=== PATIENT | male | born 1960 | race Two or more races ===

== ENCOUNTER 2021-10-20 09:19 | Observation (INO) ==
[2021-10-18 16:17] LABS: Basophils # 0.1 10*3/uL (0.0-0.2); Basophils % 1.1 % (0.0-0.8); Eosinophils # 0.1 10*3/uL (0.0-0.87); Eosinophils % 1.9 % (0.00-10.9); Hematocrit 49.5 VOL% (42.0-52.0); Hemoglobin 16.5 GM/DL (14.0-18.0); Immature Granulocytes % 0.4 %; Immature Granulocytes Absolute 0.02 #; Lymphocytes # 2.8 10*3/uL (1.4-4.0); Lymphocytes % 51.9 % (21.2-54.2); Mean Corpuscular HGB Conc 33.3 GM/DL (32-36); Mean Platelet Volume 10.1 FL (9.6-12.0); Monocytes # 0.5 10*3/uL (0.11-0.8); Monocytes % 8.6 % (1.7-12.7); Neutrophils % 36.1 % (38.7-73.9); Platelet Count 283 T/CUMM (130-400); Red Blood Count 5.44 MC/CUMM (3.8-5.5); Red Cell Distribution Width 13.6 % (9.3-17.3); White Blood Count 5.4 T/CUMM (4-12)
[2021-10-18 16:36] LABS: Albumin 3.6 G/DL (3.4-5.0); Bilirubin,Total 0.6 MG/DL (0.20-1.00); Calcium 8.7 MG/DL (8.5-10.1); Osmolality,Calculated 281.1 MOS/KG (273-304); Potassium 4.5 MMOL/L (3.5-5.1); Total Protein 6.4 G/DL (6.4-8.2)
[2021-10-18 16:41] LABS: Eosinophils 3 % (0-10); Lymphocytes 55 % (20-55)
[2021-10-18 16:42] LABS: Platelet Estimate Normal; Total Cells Counted 100
[2021-10-20] MEDS: LACTATED RINGERS 1,000 ML IV SCH ×2 (09:50→14:16)
[2021-10-20] MEDS ORDERED: DIAZEPAM 5 MG TABLET PO ONE (10:08)
[2021-10-20] MEDS ORDERED: FAMOTIDINE 20 MG TABLET PO ONE (10:08)
[2021-10-20] MEDS ORDERED: LIDOCAINE 2% 5 ML VIAL ONE (12:25)
[2021-10-20] MEDS ORDERED: propofoL 200 MG/20 ML VIAL IV ONE (12:25)
[2021-10-20] MEDS ORDERED: fentaNYL 100 MCG/2 ML VIAL ONE ×2 (12:25→13:35)
[2021-10-20] MEDS ORDERED: SEVOFLURANE 1 UNIT/15 MINUTE INH ONE ×8 (12:27→14:18)
[2021-10-20] MEDS ORDERED: ONDANSETRON 4 MG/2 ML VIAL ONE (12:41)
[2021-10-20] MEDS ORDERED: PHENYLEPHRINE 1 MG/10 ML SYRINGE IV ONE (12:53)
[2021-10-20] MEDS ORDERED: BELLADONNA/OPIUM 30 MG SUPP RECTAL ONE (13:45)
[2021-10-20] MEDS ORDERED: diphenhydrAMINE 50 MG/1 ML VIAL IV PRN (14:03)
[2021-10-20] MEDS ORDERED: LACTULOSE 20 GM/30 ML UDCUP PO PRN (14:03)
[2021-10-20] MEDS ORDERED: HYDROmorphone 1 MG/1 ML SYRINGE IV PRN (14:03)
[2021-10-20] MEDS ORDERED: ONDANSETRON 4 MG/2 ML VIAL IV PRN ×2 (14:03→14:13)
[2021-10-20] MEDS ORDERED: SIMETHICONE CHEW 125 MG TABLET PO PRN (14:03)
[2021-10-20] MEDS ORDERED: oxyCODONE/ACETAMINOPHEN 5-325 MG TABLET PO PRN (14:03)
[2021-10-20] MEDS ORDERED: PROMETHAZINE 25 MG/1 ML VIAL IM PRN (14:03)
[2021-10-20] MEDS: HYDROmorphone 1 MG/1 ML SYRINGE IV PRN ×2 (14:15→14:27)
[2021-10-20] MEDS: GENTAMICIN INJ 160 MG in SODIUM CHLORIDE 0.9% 100 ML IV SCH (15:23)
[2021-10-20] MEDS: ACETAMINOPHEN 325 MG TABLET PO SCH ×2 (15:33→20:21)
[2021-10-20] MEDS: SODIUM CHLORIDE 0.9% 1,000 ML IV SCH (16:21)
[2021-10-20 16:42] LABS: Basophils % 0.2 % (0.0-0.8); Eosinophils % 0.2 % (0.00-10.9); Hematocrit 46.2 VOL% (42.0-52.0); Immature Granulocytes % 0.6 %; Immature Granulocytes Absolute 0.06 #; Lymphocytes # 1.3 10*3/uL (1.4-4.0); Lymphocytes % 12.7 % (21.2-54.2); Mean Corpuscular HGB Conc 32.5 GM/DL (32-36); Mean Platelet Volume 10.1 FL (9.6-12.0); Monocytes # 0.5 10*3/uL (0.11-0.8); Monocytes % 4.7 % (1.7-12.7); Neutrophils % 81.6 % (38.7-73.9); Platelet Count 246 T/CUMM (130-400); Red Blood Count 4.97 MC/CUMM (3.8-5.5); Red Cell Distribution Width 13.7 % (9.3-17.3); White Blood Count 10.2 T/CUMM (4-12)
[2021-10-20 17:00] LABS: Calcium 8.2 MG/DL (8.5-10.1); Osmolality,Calculated 275.5 MOS/KG (273-304)
[2021-10-20] MEDS: FAMOTIDINE 20 MG TABLET PO SCH (20:21)
[2021-10-20] MEDS: OXYBUTYNIN 5 MG TABLET PO SCH (20:21)
[2021-10-20] MEDS: DOCUSATE SODIUM 100 MG CAPSULE PO SCH (20:21)
[2021-10-20] MEDS: BELLADONNA/OPIUM 30 MG SUPP RECTAL SCH (20:22)
[2021-10-21] MEDS: SODIUM CHLORIDE 0.9% 1,000 ML IV SCH (03:20)
[2021-10-21] MEDS: ACETAMINOPHEN 325 MG TABLET PO SCH ×4 (03:20→22:08)
[2021-10-21 04:24] LABS: Basophils % 0.1 % (0.0-0.8); Eosinophils # 0.1 10*3/uL (0.0-0.87); Eosinophils % 1.1 % (0.00-10.9); Hematocrit 46.4 VOL% (42.0-52.0); Hemoglobin 15.3 GM/DL (14.0-18.0); Immature Granulocytes % 0.4 %; Immature Granulocytes Absolute 0.03 #; Lymphocytes # 0.6 10*3/uL (1.4-4.0); Mean Corpuscular Volume 89.9 FL (87-102); Mean Platelet Volume 9.6 FL (9.6-12.0); Monocytes # 0.6 10*3/uL (0.11-0.8); Monocytes % 7.2 % (1.7-12.7); Neutrophils % 84.2 % (38.7-73.9); Platelet Count 218 T/CUMM (130-400); Red Blood Count 5.16 MC/CUMM (3.8-5.5); Red Cell Distribution Width 13.4 % (9.3-17.3); White Blood Count 8.2 T/CUMM (4-12)
[2021-10-21 04:35] LABS: Calcium 8.1 MG/DL (8.5-10.1); Osmolality,Calculated 277.4 MOS/KG (273-304); Potassium 3.9 MMOL/L (3.5-5.1)
[2021-10-21] MEDS: GENTAMICIN INJ 160 MG in SODIUM CHLORIDE 0.9% 100 ML IV SCH (05:50)
[2021-10-21] MEDS: LEVOFLOXACIN 500 MG TABLET PO SCH (09:30)
[2021-10-21] MEDS: OXYBUTYNIN 5 MG TABLET PO SCH ×3 (09:30→22:06)
[2021-10-21] MEDS: FAMOTIDINE 20 MG TABLET PO SCH ×2 (09:30→22:06)
[2021-10-21] MEDS: BELLADONNA/OPIUM 30 MG SUPP RECTAL SCH ×2 (09:31→22:07)
[2021-10-21] MEDS: DOCUSATE SODIUM 100 MG CAPSULE PO SCH ×2 (09:35→22:06)
[2021-10-21] MEDS: LACTATED RINGERS 1,000 ML IV SCH (13:05)
[2021-10-22] MEDS: ACETAMINOPHEN 325 MG TABLET PO SCH ×2 (03:43→08:59)
[2021-10-22 05:17] LABS: Basophils % 0.3 % (0.0-0.8); Eosinophils # 0.3 10*3/uL (0.0-0.87); Eosinophils % 4.9 % (0.00-10.9); Hematocrit 44.7 VOL% (42.0-52.0); Hemoglobin 14.6 GM/DL (14.0-18.0); Immature Granulocytes % 0.8 %; Immature Granulocytes Absolute 0.05 #; Lymphocytes # 1.4 10*3/uL (1.4-4.0); Lymphocytes % 23.5 % (21.2-54.2); Mean Corpuscular HGB Conc 32.7 GM/DL (32-36); Mean Corpuscular Volume 91.4 FL (87-102); Mean Platelet Volume 10.4 FL (9.6-12.0); Monocytes # 0.7 10*3/uL (0.11-0.8); Monocytes % 11.2 % (1.7-12.7); Neutrophils % 59.3 % (38.7-73.9); Platelet Count 185 T/CUMM (130-400); Red Blood Count 4.89 MC/CUMM (3.8-5.5); Red Cell Distribution Width 13.6 % (9.3-17.3)
[2021-10-22 05:33] LABS: Calcium 8.5 MG/DL (8.5-10.1); Potassium 4.1 MMOL/L (3.5-5.1)
[2021-10-22] MEDS: GENTAMICIN INJ 160 MG in SODIUM CHLORIDE 0.9% 100 ML IV SCH (05:47)
[2021-10-22] MEDS: FAMOTIDINE 20 MG TABLET PO SCH (08:59)
[2021-10-22] MEDS: LEVOFLOXACIN 500 MG TABLET PO SCH (08:59)
[2021-10-22] MEDS: DOCUSATE SODIUM 100 MG CAPSULE PO SCH (08:59)
[2021-10-22] MEDS: OXYBUTYNIN 5 MG TABLET PO SCH (08:59)
[2021-10-22] MEDS: BELLADONNA/OPIUM 30 MG SUPP RECTAL SCH (09:05)
[2021-10-22 11:32] VITALS: BP 95/61
== END 2021-10-22 12:30 | disposition home or self-care (01) ==
LOC: N.OR 09:19 → N.SDSINP 09:19 → N.3E 09:19 → N.SDSINP 09:20 → N.3E 15:13 → N.OR 10-22 12:30 → N.3E 10-23 06:43
PROVIDERS: ADMIT Surgery; ATTEND Surgery